=== PATIENT | female | born 1940 | race Caucasian/White ===

== ENCOUNTER → 2020-07-30 | Day surgery (SDC) | payer MEDICARE ==
[2020-07-27 14:24] LABS: BASOPHILS # (AUTO) 0.2 (0.0-0.1); BASOPHILS % 1.5 % (0.0-1.0); EOSINOPHILS # (AUTO) 0.5 (0.0-0.4); EOSINOPHILS % 3.5 % (0.0-6.0); HEMATOCRIT 41.4 % (34.2-44.1); HEMOGLOBIN 13.2 g/dL (12.0-16.0); LYMPHOCYTES # (AUTO) 2.3 (1.0-3.2); LYMPHOCYTES % 17.7 % (18.0-39.1); MEAN CORPUSCULAR HEMOGLOBIN 30.3 pg (28-32); MEAN CORPUSCULAR HGB CONC 31.9 g/dL (31-35); MEAN CORPUSCULAR VOLUME 95.2 fL (81-99); MONOCYTES # (AUTO) 0.6 (0.2-0.8); NEUTROPHILS # (AUTO) 9.1 (2.1-6.9); NEUTROPHILS % 71.8 % (38.7-80.0); PLATELET COUNT 804 x10e3/uL (140-360); RED BLOOD COUNT 4.35 x10e6/uL (3.6-5.1); RED CELL DISTRIBUTION WIDTH 19.7 % (11.7-14.4)
[2020-07-27 15:05] LABS: BAND NEUTROPHILS % (MANUAL) 5 %; LYMPHOCYTES % (MANUAL) 7 % (19-48); MONOCYTES % (MANUAL) 8 % (3.4-9.0); NEUTROPHILS % (MANUAL) 80 % (40-74); NUCLEATED RED BLOOD CELLS 3
[2020-07-27 15:06] LABS: POLYCHROMASIA FEW
[2020-07-27 15:07] LABS: ANISOCYTOSIS FEW; PLATELET MORPHOLOGY COMMENT FEW LARGE; SCHISTOCYTES RARE; TEAR DROP CELLS FEW
[2020-07-27 15:08] LABS: PLATELET ESTIMATE MODERATELY INCREASED
[~2020-07-30] MED LIST: ACETAMINOPHEN325 M1 PO; ALENDRONATE SOD70 MG PO; ASPIRIN81 MG PO; CALCIUM + VITA1 EACH PO; CALTRATE+D3 PL1 EACH PO; CENTRUM ADULTS1 EACH PO; CENTRUM SILVER1 EAC3 PO; Carisoprodol PO; EVISTA60 MG PO; FENTANYL CITRATE/PF 100MCG/2 ML INJ ONE; FISH OIL PO; GLUCOSAMINE &1 EAC1 PO; HYOSCYAMINE 0.125 MG TAB ONE; IBUPROFEN400 MG PO; LIDOCAINE HCL 2% LOCAL INJ 5 ML SDV VIAL INJ ONE; LYSINE500 MG PO; MOBIC7.5 M1 PO; MONTELUKAST SOD10 MG PO; NADOLOL PO; PANTOPRAZOLE PO; PHILLIPS500 MG PO; PROAIR HFA INH8.5 GM INH; PROBIOTIC COMP1 EACH PO; PROPOFOL IV EMULSION 10 MG/ML 20 ML VIAL ONE; RANTIDINE; RESTASIS1 EACH OU; SYNTHROID100 MCG PO; TYLENOL ARTHRITIS PO; VITAMIN B COMP1 EAC4 PO; Z.0.ALLEGRA60 MG PO; Z.0.FLUTICASONE PRO1 NS; Z.0.LEVOXYL100 MCG; Z.0.PRAVACHOL40 MG PO; Z.0.RESTASIS1 EACH; [UNRECOGNIZED DRUG - OTHER] PO; [UNRECOGNIZED DRUG - OTHER] PO
[2020-07-30 09:50] VITALS: BP 121/61
--- NOTE | 2020-07-30 11:18 | Operative Report ---
DATE OF PROCEDURE: 07/30/2020 SURGEON: Elie Cross MD PROCEDURES: EGD with biopsies and esophageal dilatation, and colonoscopy with polypectomy. INDICATIONS FOR EGD: Dysphagia, heartburn. INDICATIONS FOR COLONOSCOPY: Personal history of colon polyps, mother with colon cancer. MEDICATIONS: The patient was done under MAC, please see anesthesiologist's note. PROCEDURE IN DETAIL: With the patient in left lateral decubitus position, a flexible fiberoptic Olympus gastroscope was introduced into the esophagus under direct visualization without any difficulty. There was some patchy erythema noted in distal esophagus. A mild stricture was noted at the GE junction, that was subsequently dilated to size 52-[place] Wolf. The scope was then advanced with ease into the stomach, traversing a small sliding hiatal hernia. Mucosa overlying the antrum revealed some erosions with some stigmata of recent hemorrhage; biopsies were obtained and sent to stain for H. pylori. There was a minute ulcer noted in the pyloric channel. Also, there were some superficial ulcers noted in the duodenal bulb without active bleeding. The scope was then advanced with ease to the second portion of the duodenum. It was then withdrawn slowly and the mucosa overlying the proximal second portion appeared to be within normal limits; other than for a moderate-size duodenal diverticulum. The scope was then withdrawn back into the stomach and retroflexed, and mucosa overlying the fundus as well as the cardia appeared to be within normal limits. The scope was then straightened out, it was subsequently withdrawn. The patient tolerated the procedure well. IMPRESSION: 1. Distal esophagitis, mild. 2. Esophageal stricture at GE junction, dilated to size 52-[place] Wolf. 3. Small sliding hiatal hernia. 4. Gastritis, erosive, biopsies obtained, and sent to stain for H. pylori. 5. Duodenal bulb ulcers, superficial without active bleeding or stigmata of recent hemorrhage. 6. Duodenal diverticulum. PLAN: 1. Follow up histology. 2. Initiate AcipHex 20 mg one p.o. q.a.m. a.c. 3. Carafate 1 g p.o. a.c. t.i.d. and at bedtime. DESCRIPTION OF PROCEDURE: The patient was then turned around after adequate lubrication of the anal canal, a flexible fiberoptic Olympus colonoscope was inserted into the rectum with ease and advanced all the way to the cecum. It was then withdrawn slowly, mucosa overlying the cecum, ascending colon, transverse colon appeared to be within normal limits. An approximately 6 mm sessile polyp was removed per snare electrocautery from the proximal descending colon and site was hemoclipped x1. Diverticular disease was noted to involve the descending and the sigmoid. The rectum appeared to be within normal limits. The scope was then retroflexed into the distal rectum, small internal hemorrhoids were noted, none of which was actively bleeding. The scope was then straightened out, it was subsequently withdrawn. The patient tolerated the procedure well. IMPRESSION: 1. Descending colon polyp, hot snared and hemoclipped x1. 2. Diverticulosis. 3. Internal hemorrhoids, none actively bleeding. PLAN: 1. Followup histology. 2. Initiate high-fiber, low-fat diet. 3. Initiate high-fiber supplement. 4. The patient might benefit from a followup colonoscopy in 5 years. Elie Cross MD [facility] [place] /[id number] cc: Brian Cross MD
== END | disposition home or self-care (01) ==
LOC: OR 05:58
PROVIDERS: ATTEND Internal Medicine Gastroenterology
DX: Z12.11 Encounter for screening for malignant neoplasm of colon (principal); D12.4 Benign neoplasm of descending colon; K29.60 Other gastritis without bleeding; K22.2 Esophageal obstruction; K25.9 Gastric ulcer, unspecified as acute or chronic, without hemorrhage or perforation; K57.10 Diverticulosis of small intestine without perforation or abscess without bleeding; K44.9 Diaphragmatic hernia without obstruction or gangrene; K21.9 Gastro-esophageal reflux disease without esophagitis; K20.90 Esophagitis, unspecified without bleeding; K57.30 Diverticulosis of large intestine without perforation or abscess without bleeding; K64.8 Other hemorrhoids; R63.4 Abnormal weight loss; I10 Essential (primary) hypertension; R07.89 Other chest pain; I34.0 Nonrheumatic mitral (valve) insufficiency; E03.9 Hypothyroidism, unspecified; G43.701 Chronic migraine without aura, not intractable, with status migrainosus; R00.2 Palpitations; I47.2 Ventricular tachycardia; D47.3 Essential (hemorrhagic) thrombocythemia; J45.998 Other asthma; Z88.1 Allergy status to other antibiotic agents; Z88.0 Allergy status to penicillin; Z88.8 Allergy status to other drugs, medicaments and biological substances; Z91.048 Other nonmedicinal substance allergy status; Z01.810 Encounter for preprocedural cardiovascular examination; Z01.812 Encounter for preprocedural laboratory examination; Z20.828 Contact with and (suspected) exposure to other viral communicable diseases; Z86.73 Personal history of transient ischemic attack (TIA), and cerebral infarction without residual deficits; Z85.3 Personal history of malignant neoplasm of breast; Z92.21 Personal history of antineoplastic chemotherapy; Z80.0 Family history of malignant neoplasm of digestive organs
CPT/HCPCS: 36415; 43239; 43450; 45385; 85025; 93005; J2001; J2704; J3010; U0002; 45378; 45384

== ENCOUNTER 2021-12-20 14:57 | Inpatient (IN) | payer MEDICARE ==
[~2021-12-20] VITALS: Ht 175.3 cm; Wt 49.0 kg
[~2021-12-20 14:57] MED LIST changes: -FENTANYL CITRATE/PF 100MCG/2 ML INJ ONE; -HYOSCYAMINE 0.125 MG TAB ONE; -LIDOCAINE HCL 2% LOCAL INJ 5 ML SDV VIAL INJ ONE; -PROPOFOL IV EMULSION 10 MG/ML 20 ML VIAL ONE
[2021-12-20 16:40] VITALS: BP 104/85
[2021-12-20] MEDS ORDERED: ONDANSETRON HCL INJ 2MG/ML 2ML 2 MG/ML VIAL IV PRN (16:45)
[2021-12-20] MEDS ORDERED: AZITHROMYCIN250 MG PO (17:18)
[2021-12-20] MEDS ORDERED: BIOTIN5000 MC1 PO (17:18)
[2021-12-20] MEDS ORDERED: VITAMIN D350 MCG PO (17:18)
[2021-12-20] MEDS ORDERED: FLUTICASONE P15.8 ML (17:18)
[2021-12-20] MEDS ORDERED: FAMOTIDINE20 MG PO (17:18)
[2021-12-20] MEDS ORDERED: ACETAMINOPHEN650 M3 PO (17:18)
[2021-12-20 17:20] LABS: BASOPHILS % 0.2 % (0.0-1.0); HEMATOCRIT 37.2 % (34.2-44.1); HEMOGLOBIN 12.1 g/dL (12.0-16.0); LYMPHOCYTES # (AUTO) 1.1 (1.0-3.2); LYMPHOCYTES % 17.2 % (18.0-39.1); MEAN CORPUSCULAR HGB CONC 32.5 g/dL (31-35); MEAN CORPUSCULAR VOLUME 95.4 fL (81-99); MONOCYTES # (AUTO) 0.3 (0.2-0.8); MONOCYTES % 4.9 % (4.4-11.3); NEUTROPHILS # (AUTO) 5.1 (2.1-6.9); NEUTROPHILS % 76.9 % (38.7-80.0); PLATELET COUNT 235 x10e3/uL (140-360); RED CELL DISTRIBUTION WIDTH 21.5 % (11.7-14.4)
[2021-12-20] MEDS ORDERED: ACETAMINOPHEN500 MG PO (17:31)
[2021-12-20] MEDS ORDERED: CENTRUM SILVER1 EAC5 PO (17:31)
[2021-12-20] MEDS ORDERED: ASPIRIN81 MG PO (17:31)
[2021-12-20] MEDS ORDERED: CALCIUM 600-VI1 EACH PO (17:31)
[2021-12-20 17:40] LABS: ALBUMIN 3.5 g/dL (3.5-5.0); ALBUMIN/GLOBULIN RATIO 0.6 (0.8-2.0); ANION GAP 10.6 mmol/L (8-16); CREATININE, SERUM 0.75 mg/dL (0.57-1.11); POTASSIUM 3.6 mmol/L (3.5-5.1)
[2021-12-20] MEDS ORDERED: ACETAMINOPHEN 325 MG TAB PO PRN (17:45)
[2021-12-20 17:49] VITALS: BP 104/85
[2021-12-20 17:50] VITALS: BP 104/85
[2021-12-20] MEDS: DEXTROSE 5%/0.45% SOD CHL 1,000 ML IV SCH (18:13)
[2021-12-20] MEDS: ALBUTEROL/IPRATROPIUM 3 ML NEB NEB PRN (19:35)
[2021-12-20 20:00] VITALS: BP 132/61
[2021-12-20 20:24] VITALS: BP 132/61
[2021-12-20 20:55] LABS: LYMPHOCYTES % (MANUAL) 3 % (19-48); MONOCYTES % (MANUAL) 4 % (3.4-9.0); NEUTROPHILS % (MANUAL) 92 % (40-74); PLATELET ESTIMATE ADEQUATE; PLATELET MORPHOLOGY COMMENT NORMAL; RBC MORPHOLOGY COMMENT NORMAL
[2021-12-20] MEDS ORDERED: NADOLOL 20 MG TAB PO SCH (21:00)
[2021-12-20] MEDS: VITAMIN D3 T PO SCH (21:00)
[2021-12-20] MEDS: CALCIUM CARBONATE PO SCH (21:00)
[2021-12-20] MEDS: NON-FORMULARY MEDICATION (Cyclosporine (Restasis) 1 DROP) OU SCH (21:00)
[2021-12-20] MEDS: [UNRECOGNIZED DRUG - OTHER] PO SCH (21:00)
[2021-12-20] MEDS: FLUTICASONE PROPIONATE NASAL SPRAY NS SCH (21:39)
[2021-12-20] MEDS: LORATADINE 10 MG TAB PO SCH (21:46)
[2021-12-20] MEDS: MONTELUKAST SODIUM 10 MG TAB PO SCH (21:46)
[2021-12-20] MEDS: ASPIRIN 81 MG CHEW TAB PO SCH (21:46)
[2021-12-21] VITALS (8 sets, daily range): BP systolic 113–149; BP diastolic 61–79
[2021-12-21] MEDS: DEXTROSE 5%/0.45% SOD CHL 1,000 ML IV SCH ×3 (00:21→16:50)
[2021-12-21] MEDS: ALBUTEROL/IPRATROPIUM 3 ML NEB NEB PRN (04:57)
[2021-12-21] MEDS: LEVOTHYROXINE SODIUM 88 MCG TAB PO SCH (05:20)
[2021-12-21] MEDS: VITAMIN D3 T PO SCH ×2 (08:41→21:00)
[2021-12-21] MEDS: NON-FORMULARY MEDICATION (Biotin 1 TAB) PO SCH (08:41)
[2021-12-21] MEDS: CALCIUM CARBONATE PO SCH ×2 (08:41→21:00)
[2021-12-21] MEDS: [UNRECOGNIZED DRUG - OTHER] PO SCH ×2 (08:41→21:00)
[2021-12-21] MEDS: NON-FORMULARY MEDICATION (Cyclosporine (Restasis) 1 DROP) OU SCH ×2 (08:41→21:06)
[2021-12-21] MEDS: OSELTAMIVIR PHOSPHATE 75 MG CAP PO SCH ×2 (09:42→16:50)
[2021-12-21] MEDS: AZITHROMYCIN 250 MG TAB PO SCH (09:42)
[2021-12-21] MEDS: MULTIVITAMINS/MINERALS TAB PO SCH (09:42)
[2021-12-21] MEDS: CHOLECALCIFEROL 1,000 UNIT TAB PO SCH (09:42)
[2021-12-21] MEDS: FAMOTIDINE 20 MG TAB PO SCH (09:42)
[2021-12-21] MEDS: ALBUTEROL/IPRATROPIUM 3 ML NEB NEB SCH ×4 (11:00→23:35)
[2021-12-21] MEDS: FLUTICASONE PROPIONATE NASAL SPRAY NS SCH (21:06)
[2021-12-21] MEDS: LORATADINE 10 MG TAB PO SCH (21:08)
[2021-12-21] MEDS: ASPIRIN 81 MG CHEW TAB PO SCH (21:08)
[2021-12-21] MEDS: MONTELUKAST SODIUM 10 MG TAB PO SCH (21:08)
[2021-12-21] MEDS: NADOLOL 40 MG TAB PO SCH (21:09)
[2021-12-22] VITALS (7 sets, daily range): BP systolic 120–138; BP diastolic 50–75
[2021-12-22] MEDS: DEXTROSE 5%/0.45% SOD CHL 1,000 ML IV SCH ×2 (01:28→12:42)
[2021-12-22] MEDS: ALBUTEROL/IPRATROPIUM 3 ML NEB NEB SCH ×6 (03:20→23:25)
[2021-12-22] MEDS: LEVOTHYROXINE SODIUM 88 MCG TAB PO SCH (05:17)
[2021-12-22] MEDS: CALCIUM CARBONATE PO SCH ×2 (09:00→20:29)
[2021-12-22] MEDS: NON-FORMULARY MEDICATION (Biotin 1 TAB) PO SCH (09:00)
[2021-12-22] MEDS: [UNRECOGNIZED DRUG - OTHER] PO SCH ×2 (09:00→20:29)
[2021-12-22] MEDS: VITAMIN D3 T PO SCH ×2 (09:00→20:29)
[2021-12-22] MEDS: NON-FORMULARY MEDICATION (Cyclosporine (Restasis) 1 DROP) OU SCH ×2 (09:00→20:29)
[2021-12-22] MEDS: CHOLECALCIFEROL 1,000 UNIT TAB PO SCH (09:35)
[2021-12-22] MEDS: AZITHROMYCIN 250 MG TAB PO SCH (09:35)
[2021-12-22] MEDS: OSELTAMIVIR PHOSPHATE 75 MG CAP PO SCH ×2 (09:35→16:52)
[2021-12-22] MEDS: FAMOTIDINE 20 MG TAB PO SCH (09:35)
[2021-12-22] MEDS: MULTIVITAMINS/MINERALS TAB PO SCH (09:35)
[2021-12-22] MEDS ORDERED: CHLORASEPTIC SPRAY 177 ML BTL MM PRN (17:30)
[2021-12-22] MEDS: NADOLOL 40 MG TAB PO SCH (20:17)
[2021-12-22] MEDS: MONTELUKAST SODIUM 10 MG TAB PO SCH (20:28)
[2021-12-22] MEDS: FLUTICASONE PROPIONATE NASAL SPRAY NS SCH (20:28)
[2021-12-22] MEDS: LORATADINE 10 MG TAB PO SCH (20:29)
[2021-12-22] MEDS: ASPIRIN 81 MG CHEW TAB PO SCH (20:29)
[2021-12-23] VITALS: BP 148/79
[2021-12-23] MEDS: ALBUTEROL/IPRATROPIUM 3 ML NEB NEB SCH ×3 (03:35→11:00)
[2021-12-23 04:00] VITALS: BP 142/70
[2021-12-23] MEDS: LEVOTHYROXINE SODIUM 88 MCG TAB PO SCH (05:26)
[2021-12-23 05:47] LABS: BASOPHILS % 0.4 % (0.0-1.0); EOSINOPHILS % 0.7 % (0.0-6.0); HEMOGLOBIN 11.3 g/dL (12.0-16.0); LYMPHOCYTES # (AUTO) 1.3 (1.0-3.2); LYMPHOCYTES % 27.8 % (18.0-39.1); MEAN CORPUSCULAR HEMOGLOBIN 31.3 pg (28-32); MEAN CORPUSCULAR HGB CONC 33.2 g/dL (31-35); MEAN CORPUSCULAR VOLUME 94.2 fL (81-99); MONOCYTES # (AUTO) 0.2 (0.2-0.8); MONOCYTES % 4.8 % (4.4-11.3); NEUTROPHILS % 65.4 % (38.7-80.0); PLATELET COUNT 162 x10e3/uL (140-360); RED BLOOD COUNT 3.61 x10e6/uL (3.6-5.1); RED CELL DISTRIBUTION WIDTH 20.5 % (11.7-14.4)
[2021-12-23 06:11] LABS: CALCIUM 7.9 mg/dL (8.4-10.2); CREATININE, SERUM 0.56 mg/dL (0.57-1.11)
[2021-12-23] MEDS: DEXTROSE 5%/0.45% SOD CHL 1,000 ML IV SCH ×2 (07:00)
[2021-12-23 07:50] VITALS: BP 132/52
[2021-12-23] MEDS: CHOLECALCIFEROL 1,000 UNIT TAB PO SCH (08:36)
[2021-12-23] MEDS: OSELTAMIVIR PHOSPHATE 75 MG CAP PO SCH (08:36)
[2021-12-23] MEDS: FAMOTIDINE 20 MG TAB PO SCH (08:36)
[2021-12-23] MEDS: AZITHROMYCIN 250 MG TAB PO SCH (08:36)
[2021-12-23] MEDS: MULTIVITAMINS/MINERALS TAB PO SCH (08:36)
[2021-12-23 08:42] LABS: BAND NEUTROPHILS % (MANUAL) 1 %; LYMPHOCYTES % (MANUAL) 14 % (19-48); MONOCYTES % (MANUAL) 3 % (3.4-9.0); NEUTROPHILS % (MANUAL) 82 % (40-74)
[2021-12-23] MEDS: NON-FORMULARY MEDICATION (Cyclosporine (Restasis) 1 DROP) OU SCH (08:42)
[2021-12-23] MEDS: VITAMIN D3 T PO SCH (08:42)
[2021-12-23] MEDS: CALCIUM CARBONATE PO SCH (08:42)
[2021-12-23] MEDS: [UNRECOGNIZED DRUG - OTHER] PO SCH (08:42)
[2021-12-23] MEDS: NON-FORMULARY MEDICATION (Biotin 1 TAB) PO SCH (08:42)
[2021-12-23 08:43] LABS: ANISOCYTOSIS MODERATE; HYPOCHROMASIA SLIGHT; OVALOCYTES FEW; PLATELET ESTIMATE ADEQUATE; PLATELET MORPHOLOGY COMMENT NORMAL; RBC MORPHOLOGY COMMENT ABNORMAL
[2021-12-23] MEDS ORDERED: POTASSIUM CHLORIDE 20 MEQ TAB CR PO ONE (10:30)
[2021-12-23] MEDS ORDERED: POTASSIUM CHLORIDE 10MEQ EA PO ONE (11:30)
[2021-12-23 11:58] VITALS: BP 150/65
== END 2021-12-23 12:42 | disposition home or self-care (01) | DRG 194 ==
LOC: MED/SURG3 16:06
DX: J10.1 Influenza due to other identified influenza virus with other respiratory manifestations (principal); J45.901 Unspecified asthma with (acute) exacerbation; E44.0 Moderate protein-calorie malnutrition; Z68.1 Body mass index [BMI] 19.9 or less, adult; E87.6 Hypokalemia; Z88.0 Allergy status to penicillin; Z88.1 Allergy status to other antibiotic agents; Z20.822 Contact with and (suspected) exposure to COVID-19
CPT/HCPCS: 36415; 71045; 80048; 80053; 82948; 85025; 94640; 94799; 99251; J0696; U0002